=== PATIENT | female | born 1950 | race Caucasian/White ===

== ENCOUNTER 2016-08-23 13:54 | Emergency (ER) | payer OTHER ==
[~2016-08-23] VITALS: Ht 167.6 cm; Wt 77.1 kg
[~2016-08-23 13:54] MED LIST: ACET-868 PO; AMLO5TAB2 PO; ATOR40TA PO; BENA10TA2 PO; BENZ1TAB7 PO; CHOL100044 PO; DIPH25CA6 PO; DIVA125T2 PO; HYDR-3024 PO; HYDR-3326 PO; MELO-270 PO; METF500T7 PO; OXYM30SP84 NS; PANT40TA4 PO; TRAM50TA2 PO
[2016-08-23 14:37] LABS: BASOPHILS % (AUTO) 0.6 % (0.0-2.0); DIFF TOTAL % 100 %; EOSINOPHILS # (AUTO) 0.3 /CMM (0.0-0.7); EOSINOPHILS % (AUTO) 4.6 % (0.0-6.0); HEMATOCRIT 36 % (33-45); HEMOGLOBIN 12.1 g/dL (11.5-14.8); LYMPHOCYTES % (AUTO) 16.3 % (20.0-44.0); MEAN CORPUSCULAR HEMOGLOBIN 31 PG (26.0-33.0); MEAN CORPUSCULAR HGB CONC 34 g/dl (31.0-36.0); MEAN CORPUSCULAR VOLUME 92 fL (82-100); MONOCYTES # (AUTO) 0.7 /CMM (0.1-1.30); MONOCYTES % (AUTO) 11.2 % (2.0-12.0); NEUTROPHILS # (AUTO) 4.4 /CMM (1.8-8.9); NEUTROPHILS % (AUTO) 67.3 % (43.0-81.0); PLATELET COUNT (AUTO) 151 /CMM (150-450); RED BLOOD CELL COUNT(AUTO) 3.94 MIL/uL (4.0-5.2); WHITE BLOOD COUNT (AUTO) 6.4 K/uL (4.3-11.0)
[2016-08-23 14:41] LABS: ANION GAP 15 (5-14); CALCIUM, SERUM 8.6 mg/dL (8.5-10.1); CARBON DIOXIDE 24 mmol/L (21-32); CHLORIDE 98 mmol/L (98-107); GFR 56 mL/min (>60); GLUCOSE 85 mg/dL (74-106); POTASSIUM 4.4 mmol/L (3.5-5.1); SODIUM SERUM 133 mmol/L (136-145); UREA NITROGEN, BLOOD 10 mg/dL (7-18)
[2016-08-23 14:47] LABS: ALANINE AMINOTRANSFERASE 20 U/L (12-78); ALBUMIN 3.5 g/dL (3.4-5.0); ASPARTATE AMINOTRANSFERASE 19 U/L (15-37); BILIRUBIN,DIRECT 0.1 mg/dL (0.0-0.2); BILIRUBIN,TOTAL 0.4 mg/dL (0.2-1.0); INDIRECT BILIRUBIN 0.3 mg/dL (0.0-1.1); TOTAL PROTEIN, SERUM 6.2 g/dL (6.4-8.2)
[2016-08-23 14:51] LABS: ACETAMINOPHEN 0 ug/ml (10-30)
[2016-08-23 15:35] LABS: CANNABINOID, URINE NEGATIVE (NEGATIVE); PHENCYCLIDINE SCREEN,URINE NEGATIVE (NEGATIVE)
[2016-08-23 15:37] LABS: KETONES,URINE 15 (NEGATIVE); LEUKOCYTE ESTERASE ,URINE Large (NEGATIVE); PH,URINE 6.5 (5.0-8.0)
[2016-08-23 15:38] LABS: ADD UA MICROSCOPIC YES
[2016-08-23 15:41] LABS: ADD URINE CULTURE YES
[2016-08-23] MEDS ORDERED: OLAN10TA3 PO (16:00)
[2016-08-23] MEDS ORDERED: TEMA7.5C PO (16:00)
[2016-08-23] MEDS ORDERED: PARO20TA6 PO (16:00)
[2016-08-23] MEDS ORDERED: DIVA500T7 PO (16:00)
[2016-08-23] MEDS ORDERED: OLANZAPINE 5 MG TABLET PO ONE (16:30)
[2016-08-23] MEDS ORDERED: LORAZEPAM 1 MG TABLET PO ONE (16:30)
[2016-08-23] MEDS ORDERED: LORAZEPAM 1 MG TABLET ONE (16:33)
[2016-08-23] MEDS ORDERED: OLANZAPINE 5 MG TABLET ONE (16:33)
[2016-08-23 17:03] VITALS: BP 112/74
== END 2016-08-23 17:09 | disposition home or self-care (01) ==
LOC: ER 13:58
DX: F29 Unspecified psychosis not due to a substance or known physiological condition (principal); N39.0 Urinary tract infection, site not specified; E11.9 Type 2 diabetes mellitus without complications; I10 Essential (primary) hypertension; R51 Headache
CPT/HCPCS: 36415; 80048; 80076; 80305; 80329; 81001; 85025; 87086; 99284; A4606; G0480 ×2; 81000-TC; G6039-TC; Z7610

== ENCOUNTER 2016-09-21 12:47 | Inpatient (IN) | payer OTHER ==
[~2016-09-21] VITALS: Ht 157.5 cm; Wt 59.0 kg
[~2016-09-21 12:47] MED LIST changes: -ACET-868 PO; -DIPH25CA6 PO; +DIVA500T7 PO; -HYDR-3024 PO; -HYDR-3326 PO; +OLAN10TA3 PO; -OXYM30SP84 NS; +PARO20TA6 PO; +TEMA7.5C PO
[2016-09-21] MEDS ORDERED: OLANZAPINE 10 MG VIAL IM ONE ×2 (13:00→13:30)
[2016-09-21] MEDS ORDERED: WATER FOR INJECTION,STERILE 10 ML ONE (13:00)
--- NOTE | 2016-09-21 13:08 | NUR ---
PT BRITTANY PA FOR PSYCH EVAL FROM [facility]. PT IS AGITATED, AGGRESSIVE, AND HITTING LEGS ON BED. PT ABLE TO BE CALMED WHILE STAFF IS PRESENT BUT STARTS MOVING AND YELLING SOON SHE IS LEFT ALONE. PLACED ON 1 POINT RESTRAINT FOR SAFETY AT THIS TIME. MD AT BEDSIDE. IN ER BED 10.
[2016-09-21 13:21] LABS: BASOPHILS % (AUTO) 0.6 % (0.0-2.0); EOSINOPHILS # (AUTO) 0.3 /CMM (0.0-0.7); EOSINOPHILS % (AUTO) 4.3 % (0.0-6.0); HEMATOCRIT 36 % (33-45); HEMOGLOBIN 12.5 g/dL (11.5-14.8); LYMPHOCYTES # (AUTO) 1.5 /CMM (0.8-4.8); LYMPHOCYTES % (AUTO) 21.8 % (20.0-44.0); MEAN CORPUSCULAR HEMOGLOBIN 32 PG (26.0-33.0); MEAN CORPUSCULAR HGB CONC 35 g/dl (31.0-36.0); MEAN CORPUSCULAR VOLUME 93 fL (82-100); MONOCYTES # (AUTO) 0.7 /CMM (0.1-1.30); MONOCYTES % (AUTO) 9.7 % (2.0-12.0); NEUTROPHILS # (AUTO) 4.4 /CMM (1.8-8.9); NEUTROPHILS % (AUTO) 63.6 % (43.0-81.0); PLATELET COUNT (AUTO) 265 /CMM (150-450); RDW COEFFICIENT OF VARIATION 13.4 (11.5-15.0); RED BLOOD CELL COUNT(AUTO) 3.85 MIL/uL (4.0-5.2); WHITE BLOOD COUNT (AUTO) 6.9 K/uL (4.3-11.0)
[2016-09-21 13:28] LABS: APPEARANCE,URINE Clear (CLEAR); BILIRUBIN,URINE Negative (NEGATIVE); BLOOD, URINE Negative Ery/uL (NEGATIVE); COLOR,URINE Yellow (YELLOW); KETONES,URINE Negative (NEGATIVE); LEUKOCYTE ESTERASE ,URINE Negative (NEGATIVE); NITRITE, URINE Negative (NEGATIVE); PROTEIN,URINE Negative (NEGATIVE); UGLUCOSE Negative (NEGATIVE)
--- NOTE | 2016-09-21 13:30 | NUR ---
URINE SAMPLE OBTAINED VIA IN AND OUT CATH
[2016-09-21 13:35] LABS: ADD URINE CULTURE NO; BACTERIA,URINE Few /HPF (None Seen); RBC,URINE 0-2 /HPF (0-2); SQUAMOUS EPITHELIAL CELL,UR Few /HPF (None Seen)
[2016-09-21] MEDS ORDERED: LORAZEPAM INJ 2 MG/ML VIAL ONE (13:41)
--- NOTE | 2016-09-21 13:44 | NUR ---
CALLED [facility] FOR PSYCH EVAL, ETA 1 HOUR
--- NOTE | 2016-09-21 13:45 | NUR ---
PT REMAINS AGITATED, KICKING LEGS ON THE BED AND YELLING. 2MG ATIVAN ADMINISTERED IM PER MD ORDER.
[2016-09-21 13:58] LABS: CALCIUM, SERUM 8.7 mg/dL (8.5-10.1); CARBON DIOXIDE 19 mmol/L (21-32); CHLORIDE 107 mmol/L (98-107); GFR 56 mL/min (>60); GLUCOSE 91 mg/dL (74-106); POTASSIUM 4.1 mmol/L (3.5-5.1); SODIUM SERUM 142 mmol/L (136-145); UREA NITROGEN, BLOOD 14 mg/dL (7-18)
[2016-09-21] MEDS ORDERED: LORAZEPAM INJ 2 MG/ML VIAL IM ONE (14:00)
[2016-09-21 14:02] LABS: CANNABINOID, URINE NEGATIVE (NEGATIVE); PHENCYCLIDINE SCREEN,URINE NEGATIVE (NEGATIVE)
[2016-09-21 14:03] LABS: ALANINE AMINOTRANSFERASE 31 U/L (12-78); ALBUMIN 3.5 g/dL (3.4-5.0); ALCOHOL, BLOOD < 3 mg/dL (0-0); ALKALINE PHOSPHATASE 135 U/L (46-116); ASPARTATE AMINOTRANSFERASE 29 U/L (15-37); BILIRUBIN,DIRECT 0.2 mg/dL (0.0-0.2); BILIRUBIN,TOTAL 0.7 mg/dL (0.2-1.0); TOTAL PROTEIN, SERUM 6.4 g/dL (6.4-8.2)
[2016-09-21 14:04] LABS: ACETAMINOPHEN 0 ug/ml (10-30); SALICYLATE 1.4 mg/dL (2.8-20.0)
--- NOTE | 2016-09-21 14:35 | NUR ---
ELEUTERIO AT BEDSIDE
--- NOTE | 2016-09-21 15:07 | NUR ---
REPORT GIVEN TO JAVIER RN FOR ADMISSION
--- NOTE | 2016-09-21 15:51 | NUR ---
PT TRANSPORTED TO [facility] IN STABLE CONDITION
[2016-09-21] MEDS ORDERED: ASCO500T9 PO (15:55)
[2016-09-21] MEDS ORDERED: QUET100T PO (15:55)
[2016-09-21] MEDS ORDERED: SODI100010 PO (15:55)
[2016-09-21] MEDS ORDERED: RIVA1.5C7 PO (15:55)
[2016-09-21] MEDS ORDERED: CLON0.5T4 PO (15:55)
--- NOTE | 2016-09-21 15:55 | NUR ---
gps/rn Patient admitted on a 5150 hold for GD under the care of Dr Becerril and Dr Joshua. per hold patient was aggressive towards residents at facility, disorganized, confused, bizarre thoughts, and unable to care for self. Upon face to face assessment, patient was highly disorganized, confused, unable to answer basic questions, striking out at staff and refused skin assessment. Both Dr's aware of new admission, medications reconciled in system, admitting orders in system, MRSA done in Er. Patient denies Si/HI at this time, patient is in dining room, continues to be agitated, anxious, unable to redirect, no major distress noted, will continue to monitor q 15 min for safety and behavior.
[2016-09-21] MEDS ORDERED: MAG HYDROX/AL HYDROX/SIMETH 30 ML UDC PO PRN (16:00)
[2016-09-21] MEDS ORDERED: ACETAMINOPHEN 325 MG TABLET PO PRN (16:00)
[2016-09-21] MEDS ORDERED: MAGNESIUM HYDROXIDE 30 ML UDC PO PRN (16:00)
--- NOTE | 2016-09-21 16:30 | NUR ---
RN-CO: OBTAINED ADMITTING ORDERS FROM DR REHMAN VIA PHONE CALL. GAVE ROUTINE ORDERS NOTED AND CARRIED OUT.
[2016-09-21] MEDS: LORAZEPAM 0.5 MG TABLET PO PRN (17:29)
--- NOTE | 2016-09-21 17:30 | NUR ---
RN-CO: OBTAINED AN ORDER IF WE CAN PLACE PATIENT ON `1:1 SITTER DUE TO HER NON REDIRECTABLE BEHAVIOR LIKE CLIMBING OUT, SCRATCHING THE STAFF AND COMBATIVE TO CARE. DR REHMAN OK'D TO 1:1 THE PATIENT. PTS CURRENT BP IS 90/63.
--- NOTE | 2016-09-21 18:31 | NUR ---
GPS RN NOTE Called Dr. Anderson made aware about admission, orders reconciled and faxed to pharmacy.
[2016-09-21 20:12] VITALS: BP 102/82
[2016-09-21] MEDS: TEMAZEPAM 7.5 MG CAPSULE PO PRN (22:14)
[2016-09-22] MEDS: LORAZEPAM 0.5 MG TABLET PO PRN ×2 (05:29→20:37)
[2016-09-22 07:49] LABS: ALBUMIN 3.8 g/dL (3.4-5.0); BILIRUBIN,TOTAL 0.9 mg/dL (0.2-1.0); POTASSIUM 3.7 mmol/L (3.5-5.1); TOTAL PROTEIN, SERUM 6.8 g/dL (6.4-8.2)
[2016-09-22] MEDS: METFORMIN XR 500 MG TAB.SR.24H PO SCH (08:21)
[2016-09-22] MEDS: PANTOPRAZOLE 40 MG TABLET.DR PO SCH (08:22)
[2016-09-22] MEDS: SODIUM CHLORIDE 1000 MG TABLET.SOL PO SCH ×3 (08:22→18:53)
[2016-09-22] MEDS: RIVASTIGMINE TARTRATE 1.5 MG CAPSULE PO SCH ×2 (08:22→18:44)
[2016-09-22 09:21] VITALS: BP 112/58
--- NOTE | 2016-09-22 09:28 | NUR ---
Initial DC Plan: Patient was residing at [facility] ([address], [place] [address] ). Assigned SW to follow up with facility to confirm whether they are able to take her back. Di Gilberton from [facility] stated that they can help place her if necessary. SW spoke to the patient's brother (John Gutierrez- [phone]) who stated that he was coming down from [place] tomorrow (09/23/2016) and was going to be speaking to the facility. He stated that he will speak to them to see what options are available and will also meet with assigned SW. SW will follow up with facility in terms of placement. SW will help form a safe and proper discharge.
--- NOTE | 2016-09-22 11:14 | NUR ---
PATIENT VERY ANXIOUS, PARANOID, AGGRESSIVE, CONFUSED, STRIKING OUT AT OTHERS, DELUSIONAL,, HEARING VOICES, HARD TO FOLLOW DIRECTION, YELLING, SCREAMING. KEEP PATIENT QUIET, REDIRECTED. CALLED DR REHMAN, AND GET ORDER ZYPREXA 10MG/ML IM, AND ATIVAN 1 MG/ML IM, ORDER TAKEN , AND CARRIED OUT.
[2016-09-22] MEDS ORDERED: OLANZAPINE 10 MG VIAL IM ONE (11:30)
[2016-09-22] MEDS ORDERED: LORAZEPAM INJ 2 MG/ML VIAL IM ONE (11:30)
--- NOTE | 2016-09-22 11:35 | NUR ---
ADMINISTERED ATIVAN 1 MG/ML IM, AND ZYPREXA 10MG/ML IM, RIGHT UPPER DELTOID AREA PRESCRIBED BY DR TANG, V/S TAKEN BP-122/78, P-108, R-21, O2-94 ROOM AIR. 1:1 SITTER NEXT TO THE BED FOR SAFETY, CONTINUED MONITORING.
--- NOTE | 2016-09-22 12:05 | NUR ---
UR Update: Faxed clinicals to Di Harkins with [facility] (PHONE [phone] EXT [phone] FAX# [phone]). Also faxed clinicals to [facility] ([phone] EXT [phone] ). Sw will follow up. AUTHORIZATION# [id number]
--- NOTE | 2016-09-22 14:29 | NUR ---
BECKI spoke with pt's brother, John Gutierrez- [phone] who informed the group social worker that he will be in tomorrow to speak with the group social worker. John is coming out of state to discuss pt's living situation.
[2016-09-22 16:29] VITALS: BP 100/73
[2016-09-22] MEDS ORDERED: DIVALPROEX SODIUM 250 MG TABLET.DR PO SCH (17:00)
[2016-09-22] MEDS: clonazePAM 0.5 MG TABLET PO SCH (18:44)
[2016-09-22] MEDS: QUETIAPINE FUMARATE 100 MG TABLET PO SCH (18:44)
[2016-09-22 20:01] VITALS: BP 117/63
[2016-09-22] MEDS: DIVALPROEX SODIUM 125 MG CAP.SPRINK PO SCH (21:07)
[2016-09-22] MEDS: TEMAZEPAM 7.5 MG CAPSULE PO PRN (22:11)
[2016-09-23] MEDS: LORAZEPAM 0.5 MG TABLET PO PRN (03:41)
[2016-09-23] MEDS: PANTOPRAZOLE 40 MG TABLET.DR PO SCH (07:57)
[2016-09-23] MEDS: RIVASTIGMINE TARTRATE 1.5 MG CAPSULE PO SCH ×2 (07:57→16:42)
[2016-09-23 08:00] VITALS: BP 127/54
[2016-09-23] MEDS: DIVALPROEX SODIUM 125 MG CAP.SPRINK PO SCH ×2 (08:36→20:44)
[2016-09-23] MEDS: SODIUM CHLORIDE 1000 MG TABLET.SOL PO SCH ×3 (08:36→16:42)
[2016-09-23] MEDS: clonazePAM 0.5 MG TABLET PO SCH ×3 (08:36→16:42)
[2016-09-23] MEDS: METFORMIN XR 500 MG TAB.SR.24H PO SCH (08:37)
[2016-09-23] MEDS: QUETIAPINE FUMARATE 100 MG TABLET PO SCH ×3 (08:37→16:42)
--- NOTE | 2016-09-23 10:37 | NUR ---
UR Update: Faxed updated clinicals (H&P, med list) to Di Harkins with [facility] (PHONE [phone] EXT [phone] FAX# [phone]). will follow up. AUTHORIZATION# [id number]
--- NOTE | 2016-09-23 14:30 | NUR ---
BECKI spoke with [place] [facility] [place]ONE [phone] EXT [phone] FAX# [phone]) regarding pt's discharge and Di requested Medi - sabine application to be filled. BECKI left a voicemail for Bhavna Florez insurance liaison ext [phone] to file for one.
[2016-09-23 15:55] VITALS: BP 125/63
--- NOTE | 2016-09-23 17:02 | NUR ---
SW met with BECKI Swanson from [facility] [phone] and pt's brother, John Gutierrez- [phone] and pt's discharge plan and insurance was discussed. The meeting lasted about an hour and as an outcome, it was decided that pt. would dis-enrol from HMO and enrol back into straight medicare and apply for [facility] medi-sabine with share of cost. Pt's brother agreed and will take appropriate steps to achieve this.
[2016-09-23] MEDS ORDERED: Z GUARD REMEDY 2 OZ OINT TP PRN (17:30)
--- NOTE | 2016-09-23 19:45 | NUR ---
GPSRN PATIENT IN THE RECREATION ACTIVITY ROOM, SITTER AT BEDSIDE. VERBAL LIMITED, UNCOOPERATIVE OF THIS TIME, HITS STAFF WHEN ASKED. OTHERWISE QUIET WHEN LEFT ALONE. NEEDS CONSTANT OBSERVATION.
[2016-09-23 20:00] VITALS: BP 100/66
[2016-09-23 20:12] VITALS: BP 100/66
--- NOTE | 2016-09-23 22:25 | NUR ---
GPSRN DUE MEDS ADMINISTERED WITH APPLE SAUCE. ABLE TO SWALLOW.
--- NOTE | 2016-09-24 01:54 | NUR ---
GPSRN SLEEPING FOR NOW CLOSELY WATCHED.
[2016-09-24] MEDS: RIVASTIGMINE TARTRATE 1.5 MG CAPSULE PO SCH ×2 (06:46→17:11)
[2016-09-24 08:40] VITALS: BP 148/64
[2016-09-24] MEDS: DIVALPROEX SODIUM 125 MG CAP.SPRINK PO SCH ×2 (08:44→21:47)
[2016-09-24] MEDS: SODIUM CHLORIDE 1000 MG TABLET.SOL PO SCH ×3 (08:44→17:11)
[2016-09-24] MEDS: QUETIAPINE FUMARATE 100 MG TABLET PO SCH ×4 (08:45→21:47)
[2016-09-24] MEDS: clonazePAM 0.5 MG TABLET PO SCH ×3 (08:45→17:11)
[2016-09-24] MEDS: PANTOPRAZOLE 40 MG TABLET.DR PO SCH (08:45)
[2016-09-24] MEDS: METFORMIN XR 500 MG TAB.SR.24H PO SCH (08:45)
[2016-09-24 16:26] VITALS: BP 130/58
--- NOTE | 2016-09-24 16:45 | NUR ---
UR Update: Faxed updated clinicals to Di Harkins with [facility] (PHONE [phone] EXT [phone] FAX# [phone]). Sw will follow up. AUTHORIZATION# [id number]
--- NOTE | 2016-09-24 19:30 | NUR ---
PS RN NOTE, RECEIVED PATIENT AWAKE AND IN BED, NO S/S OR COMPLAINTS OF PAIN AT THIS TIME. PATIENT IS DISPLAYING NO S/S OF APPARENT DISTRESS AT THIS TIME. PATIENT BREATHING IS UNLABORED WITH EQUAL RISE AND FALL OF THE CHEST. PATIENT IS ALERT AND ORIENTED X 1 ON ROOM AIR WITH A SPO2 95%. PATIENT COMPLIANT WITH MEDICATIONS, ANXIOUS, HYPERVERBAL, DISORGANIZED, CONFUSED AT TIMES, AND NEEDS REORIENTATION. PATIENT DENIES SUICIDE AND HOMICIDAL IDEATIONS AT THIS TIME. PATIENT ASSISTED WITH TURNING AND REPOSITIONING Q2HR AND PRN FOR COMFORT AND CIRCULATION. PATIENT HAS NO NEEDS AT THIS TIME. PATIENT REFUSED SKIN ASSESSMENT TODAY. PATIENT EDUCATED ON THE USE OF THE CALL GUO. PATIENT BED SIDE RAILS UP X2 FOR SAFETY, BED IS LOCKED AND LOW WILL CONTINUE TO MONITOR AND MAINTAIN SAFETY.
[2016-09-24 20:14] VITALS: BP 126/78
[2016-09-25] MEDS: RIVASTIGMINE TARTRATE 1.5 MG CAPSULE PO SCH ×2 (07:08→17:16)
[2016-09-25 08:29] VITALS: BP 139/66
[2016-09-25] MEDS: PANTOPRAZOLE 40 MG TABLET.DR PO SCH (09:02)
[2016-09-25] MEDS: METFORMIN XR 500 MG TAB.SR.24H PO SCH (09:02)
[2016-09-25] MEDS: DIVALPROEX SODIUM 125 MG CAP.SPRINK PO SCH ×2 (09:02→21:37)
[2016-09-25] MEDS: SODIUM CHLORIDE 1000 MG TABLET.SOL PO SCH ×3 (09:02→17:17)
[2016-09-25] MEDS: clonazePAM 0.5 MG TABLET PO SCH ×3 (09:02→17:16)
[2016-09-25] MEDS: QUETIAPINE FUMARATE 100 MG TABLET PO SCH ×4 (09:06→21:37)
--- NOTE | 2016-09-25 12:30 | NUR ---
PT. ENDORSED TO ME BY TERESA MCGILL,IN RM. IN [facility]A CHAIR.
[2016-09-25 16:01] VITALS: BP 140/67
--- NOTE | 2016-09-25 19:30 | NUR ---
GPS RN NOTE, RECEIVED PATIENT AWAKE AND IN BED, NO S/S OR COMPLAINTS OF PAIN AT THIS TIME. PATIENT IS DISPLAYING NO S/S OF APPARENT DISTRESS AT THIS TIME. PATIENT BREATHING IS UNLABORED WITH EQUAL RISE AND FALL OF THE CHEST. PATIENT IS ALERT AND ORIENTED X 1 ON ROOM AIR WITH A SPO2 95%. PATIENT COMPLIANT WITH MEDICATIONS WHEN CRUSHED, ANXIOUS, HYPERVERBAL, DISORGANIZED, CONFUSED AT TIMES, AND NEEDS REORIENTATION. PATIENT DENIES SUICIDE AND HOMICIDAL IDEATIONS AT THIS TIME. PATIENT ASSISTED WITH TURNING AND REPOSITIONING Q2HR AND PRN FOR COMFORT AND CIRCULATION. PATIENT HAS NO NEEDS AT THIS TIME. PATIENT REFUSED SKIN ASSESSMENT TODAY. PATIENT EDUCATED ON THE USE OF THE CALL GUO. PATIENT BED SIDE RAILS UP X2 FOR SAFETY, BED IS LOCKED AND LOW WILL CONTINUE TO MONITOR AND MAINTAIN SAFETY.
[2016-09-25 19:56] VITALS: BP 132/63
[2016-09-25] MEDS: TEMAZEPAM 7.5 MG CAPSULE PO PRN (22:42)
--- NOTE | 2016-09-25 22:42 | NUR ---
GPS RN NOTE, PATIENT HAS A COMPLAINT OF NOT BEING ABLE TO SLEEP AND WOULD LIKE A SLEEPING AID AT THIS TIME. PATIENT VITAL SIGNS ARE STABLE. GAVE RESTORIL 7.5MG PO HS ORDERED. WILL REASSESS FOR INSOMNIA AND I WILL CONTINUE TO MONITOR THIS PATIENT.
[2016-09-26] MEDS: RIVASTIGMINE TARTRATE 1.5 MG CAPSULE PO SCH ×2 (07:48→18:12)
[2016-09-26] MEDS: METFORMIN XR 500 MG TAB.SR.24H PO SCH (07:48)
[2016-09-26] MEDS: SODIUM CHLORIDE 1000 MG TABLET.SOL PO SCH ×3 (07:48→18:12)
[2016-09-26] MEDS: clonazePAM 0.5 MG TABLET PO SCH ×3 (07:49→18:12)
[2016-09-26] MEDS: PANTOPRAZOLE 40 MG TABLET.DR PO SCH (07:49)
[2016-09-26] MEDS: DIVALPROEX SODIUM 125 MG CAP.SPRINK PO SCH ×2 (07:49→22:04)
[2016-09-26] MEDS: QUETIAPINE FUMARATE 100 MG TABLET PO SCH ×4 (07:57→22:04)
[2016-09-26 08:00] VITALS: BP 112/89
[2016-09-26 16:00] VITALS: BP 100/66
--- NOTE | 2016-09-26 19:40 | NUR ---
GPS OPENING NOTES RECEIVED Pt AWAKE, SITTING IN CHAIR IN THE ACTIVITY ROOM. NO S/S OF ACUTE DISTRESS OR SOB NOTED. Pt BREATHING IS UNLABORED WITH EQUAL RISE AND FALL OF THE CHEST. NO SIGNS OF PAIN NOTED AT THIS TIME. Pt IS A/OX1, CONFUSED, VERBAL. SAFETY MEASURES IN PLACE. BEING WATCHED BY DOOR LINER WHILE IN THE ACTIVITY ROOM. WILL CONTINUE TO MONITOR Pt THROUGHOUT THE NIGHT AND MAINTAIN SAFETY.
[2016-09-26 20:12] VITALS: BP 110/59
[2016-09-26] MEDS: TEMAZEPAM 7.5 MG CAPSULE PO PRN (22:05)
--- NOTE | 2016-09-27 06:40 | NUR ---
RN CLOSING NOTES NO SIGNIFICANT CHANGES. NO S/S OF ACUTE DISTRESS OR SOB NOTED DURING THE NIGHT. ALL SAFETY MEASURES CARRIED OUT. ALL NEEDS MET AND ATTENDED TO. WILL ENDORSE TO DAYSHIFT RN FOR Pt's JAIRON.
[2016-09-27] MEDS: RIVASTIGMINE TARTRATE 1.5 MG CAPSULE PO SCH ×2 (06:45→16:19)
[2016-09-27] MEDS: PANTOPRAZOLE 40 MG TABLET.DR PO SCH (06:45)
[2016-09-27 08:00] VITALS: BP 115/73
[2016-09-27] MEDS: METFORMIN XR 500 MG TAB.SR.24H PO SCH (08:01)
[2016-09-27] MEDS: SODIUM CHLORIDE 1000 MG TABLET.SOL PO SCH ×3 (08:01→16:19)
[2016-09-27] MEDS: clonazePAM 0.5 MG TABLET PO SCH ×3 (08:01→16:19)
[2016-09-27] MEDS: DIVALPROEX SODIUM 125 MG CAP.SPRINK PO SCH ×2 (08:01→21:53)
[2016-09-27] MEDS: QUETIAPINE FUMARATE 100 MG TABLET PO SCH ×4 (08:09→21:52)
--- NOTE | 2016-09-27 09:31 | NUR ---
UR Update: Faxed updated clinicals to Di Harkins with [facility] (P [phone] EXT [phone] F [phone]). SW will follow up. AUTHORIZATION# [id number]
--- NOTE | 2016-09-27 09:36 | NUR ---
BECKI spoke with pt's brother, John Gutierrez- [phone] who confirmed that he is trying to dis-enroll the patient from HMO and enroll pt. back into straight medicare which will help SW in order to place the patient in a SNF. John is also working on applying for snf medi-sabine with share of cost. BECKI will follow up .
[2016-09-27 16:00] VITALS: BP 132/70
[2016-09-27 20:30] VITALS: BP 100/72
[2016-09-27] MEDS: TEMAZEPAM 7.5 MG CAPSULE PO PRN (21:57)
[2016-09-28] MEDS: RIVASTIGMINE TARTRATE 1.5 MG CAPSULE PO SCH ×2 (06:25→17:51)
[2016-09-28 08:00] VITALS: BP 115/60
[2016-09-28] MEDS: METFORMIN XR 500 MG TAB.SR.24H PO SCH (08:06)
[2016-09-28] MEDS: DIVALPROEX SODIUM 125 MG CAP.SPRINK PO SCH ×2 (08:06→20:18)
[2016-09-28] MEDS: PANTOPRAZOLE 40 MG TABLET.DR PO SCH (08:06)
[2016-09-28] MEDS: SODIUM CHLORIDE 1000 MG TABLET.SOL PO SCH ×3 (08:07→17:52)
[2016-09-28] MEDS: clonazePAM 0.5 MG TABLET PO SCH ×3 (08:07→17:52)
[2016-09-28] MEDS: QUETIAPINE FUMARATE 100 MG TABLET PO SCH ×4 (08:10→20:18)
--- NOTE | 2016-09-28 11:06 | NUR ---
UR Update: Faxed updated clinicals to Di Harkins with [facility] (P [phone] EXT [phone] F [phone]). SW will follow up. AUTHORIZATION# [id number]
--- NOTE | 2016-09-28 11:07 | NUR ---
UR Update: BECKI spoke with Di Harkins with [facility] (P [phone] EXT [phone] F [phone]) and discussed updates regarding disenrollment. AUTHORIZATION# [id number]
[2016-09-28 16:00] VITALS: BP 100/63
[2016-09-28 20:33] VITALS: BP 132/78
[2016-09-29] MEDS: RIVASTIGMINE TARTRATE 1.5 MG CAPSULE PO SCH ×2 (06:35→16:32)
[2016-09-29] MEDS: DIVALPROEX SODIUM 125 MG CAP.SPRINK PO SCH ×2 (08:21→21:36)
[2016-09-29] MEDS: SODIUM CHLORIDE 1000 MG TABLET.SOL PO SCH ×3 (08:21→16:31)
[2016-09-29] MEDS: METFORMIN XR 500 MG TAB.SR.24H PO SCH (08:21)
[2016-09-29] MEDS: clonazePAM 0.5 MG TABLET PO SCH ×3 (08:21→16:31)
[2016-09-29] MEDS: PANTOPRAZOLE 40 MG TABLET.DR PO SCH (08:21)
[2016-09-29] MEDS: QUETIAPINE FUMARATE 100 MG TABLET PO SCH ×4 (08:24→21:36)
[2016-09-29 08:49] VITALS: BP 128/77
--- NOTE | 2016-09-29 12:03 | NUR ---
UR Update: BECKI faxed clinical information and spoke with Di Harkins with [facility] (P [phone] EXT [phone] F [phone]). AUTHORIZATION# [id number]
--- NOTE | 2016-09-29 12:04 | NUR ---
BECKI spoke with pt's niece Em [phone] who will be helping her dad to take care of financial decisions for the patient. She agreed to call and disenroll from medicare. Then called back and left a voicemail that she is unable to do it without her father. Becki relayed that information to Di from [facility] (P [phone] EXT [phone] F [phone])
[2016-09-29 16:00] VITALS: BP 117/71
[2016-09-29 20:54] VITALS: BP 108/78
[2016-09-30] MEDS: LORAZEPAM 0.5 MG TABLET PO PRN (04:29)
--- NOTE | 2016-09-30 04:29 | NUR ---
GPS RN NOTE, PATIENT HAS A COMPLAINT OF FEELING ANXIOUS AND WOULD LIKE MEDICATION AT THIS TIME. PATIENT VITAL SIGNS ARE STABLE. GAVE ATIVAN 0.5MG PO Q6HR PRN ORDERED. WILL REASSESS FOR ANXIETY AND I WILL CONTINUE TO MONITOR THIS PATIENT.
[2016-09-30] MEDS: PANTOPRAZOLE 40 MG TABLET.DR PO SCH (08:00)
[2016-09-30] MEDS: METFORMIN XR 500 MG TAB.SR.24H PO SCH (08:01)
[2016-09-30] MEDS: clonazePAM 0.5 MG TABLET PO SCH ×3 (08:01→17:04)
[2016-09-30] MEDS: DIVALPROEX SODIUM 125 MG CAP.SPRINK PO SCH ×2 (08:01→20:32)
[2016-09-30] MEDS: RIVASTIGMINE TARTRATE 1.5 MG CAPSULE PO SCH ×2 (08:02→17:06)
[2016-09-30] MEDS: SODIUM CHLORIDE 1000 MG TABLET.SOL PO SCH ×3 (08:02→17:04)
[2016-09-30] MEDS: QUETIAPINE FUMARATE 100 MG TABLET PO SCH ×4 (08:06→20:32)
[2016-09-30 08:11] VITALS: BP 124/78
--- NOTE | 2016-09-30 09:00 | NUR ---
GPS RN NOTE, RECEIVED PATIENT AWAKE AND IN BED, NO S/S OR COMPLAINTS OF PAIN AT THIS TIME. PATIENT IS DISPLAYING NO S/S OF APPARENT DISTRESS AT THIS TIME. PATIENT BREATHING IS UNLABORED WITH EQUAL RISE AND FALL OF THE CHEST. PATIENT IS ALERT AND ORIENTED X 1 ON ROOM AIR WITH A SPO2 95%. PATIENT COMPLIANT WITH MEDICATIONS WHEN CRUSHED, ANXIOUS, HYPERVERBAL, DISORGANIZED, CONFUSED AT TIMES, AND NEEDS REORIENTATION. PATIENT DENIES SUICIDE AND HOMICIDAL IDEATIONS AT THIS TIME. PATIENT ASSISTED WITH TURNING AND REPOSITIONING Q2HR AND PRN FOR COMFORT AND CIRCULATION. PATIENT HAS NO NEEDS AT THIS TIME. PATIENT EDUCATED ON THE USE OF THE CALL GUO. PATIENT BED SIDE RAILS UP X2 FOR SAFETY, BED IS LOCKED AND LOW WILL CONTINUE TO MONITOR AND MAINTAIN SAFETY.
--- NOTE | 2016-09-30 12:08 | NUR ---
UR Update: BECKI faxed clinical information to Di Harkins with [facility] (P [phone] EXT [phone] F [phone]). AUTHORIZATION# [id number]
--- NOTE | 2016-09-30 12:09 | NUR ---
Pt's chrsi Strickland [phone] left a voicemail for SW stating pt. is disenrolled from O and will have her medicare from 10/02/16.
--- NOTE | 2016-09-30 16:10 | NUR ---
Pt. was referred and not accepted to [facility] [address] [place] [address] per Hanna from admission.
--- NOTE | 2016-09-30 16:13 | NUR ---
BECKI faxed a referral to [facility] [address] [place] [address] . Will follow up Addendum: 10/04/16 at 1455 by MACIEL CONNELL Dominik from the facility came to assess the patient, and after reviewing with their DON pt. cannot be accepted.
[2016-09-30 16:14] VITALS: BP 115/73
--- NOTE | 2016-09-30 18:26 | NUR ---
GPS RN NOTES PATIENT IN BED RESTING NO SOB OR ACUTE DISTRESS NOTED. ALL DUE MEDICATIONS GIVEN. ALL NEEDS MET. PATIENT COOPERATIVE. WILL ENDORSE TO PM SHIFT JAIRON.
[2016-09-30 20:00] VITALS: BP 126/80
[2016-10-01 08:00] VITALS: BP 159/51
[2016-10-01] MEDS: SODIUM CHLORIDE 1000 MG TABLET.SOL PO SCH ×3 (08:31→17:03)
[2016-10-01] MEDS: clonazePAM 0.5 MG TABLET PO SCH ×3 (08:31→17:03)
[2016-10-01] MEDS: QUETIAPINE FUMARATE 100 MG TABLET PO SCH ×4 (08:32→22:11)
[2016-10-01] MEDS: PANTOPRAZOLE 40 MG TABLET.DR PO SCH (08:32)
[2016-10-01] MEDS: RIVASTIGMINE TARTRATE 1.5 MG CAPSULE PO SCH ×2 (08:32→17:03)
[2016-10-01] MEDS: DIVALPROEX SODIUM 125 MG CAP.SPRINK PO SCH ×2 (08:32→22:11)
[2016-10-01] MEDS: METFORMIN XR 500 MG TAB.SR.24H PO SCH (08:32)
[2016-10-01 16:08] VITALS: BP 102/72
--- NOTE | 2016-10-01 19:45 | NUR ---
RN OPENING NOTES RECEIVED REPORT FROM DAYSHIFT RN. FOUND Pt AWAKE, SITTING IN CHAIR IN THE ACTIVITY ROOM WATCHING TV, WITH REGISTERED PHARMACY TECHNICIAN PRESENT IN ROOM. Pt IS A/OX1, CONFUSED. NO S/S OF ACUTE DISTRESS OR SOB NOTED. EQUAL CHEST RISE AND FALL. SAFETY MEASURES IN PLACE. WILL CONTINUE TO MONITOR Pt THROUGHOUT THE NIGHT FOR SAFETY.
[2016-10-01 20:00] VITALS: BP 137/72
--- NOTE | 2016-10-02 06:47 | NUR ---
RN CLOSING NOTES NO SIGNIFICANT CHANGES DURING THE NIGHT. NO S/S OF ACUTE DISTRESS OR SOB NOTED DURING THE SHIFT. ALL NEEDS MET AND ATTENDED TO. SAFETY MEASURES CARRIED OUT. WILL ENDORSE TO DAYSHIFT RN FOR Pt's JAIRON AND SAFETY. Addendum: 10/02/16 at 0648 by SHRUTHI RIVERA RN POSSIBLE D/C BACK TO FACILITY TODAY
[2016-10-02] MEDS: RIVASTIGMINE TARTRATE 1.5 MG CAPSULE PO SCH ×2 (06:54→17:12)
[2016-10-02] MEDS: PANTOPRAZOLE 40 MG TABLET.DR PO SCH (06:54)
[2016-10-02 08:01] VITALS: BP 129/70
[2016-10-02] MEDS: DIVALPROEX SODIUM 125 MG CAP.SPRINK PO SCH ×2 (08:47→20:52)
[2016-10-02] MEDS: clonazePAM 0.5 MG TABLET PO SCH ×3 (08:47→17:12)
[2016-10-02] MEDS: SODIUM CHLORIDE 1000 MG TABLET.SOL PO SCH ×3 (08:47→17:12)
[2016-10-02] MEDS: METFORMIN XR 500 MG TAB.SR.24H PO SCH (08:47)
[2016-10-02] MEDS: QUETIAPINE FUMARATE 100 MG TABLET PO SCH ×4 (08:50→20:52)
[2016-10-02] MEDS: BOOST PLUS FOOD-VANILLA 237 ML BOX PO SCH ×3 (09:36→17:13)
[2016-10-02 16:08] VITALS: BP 118/59
[2016-10-02 20:00] VITALS: BP 127/74
--- NOTE | 2016-10-02 20:00 | NUR ---
RECEIVED PATIENT UP ON CHAIR, NON-VERBAL, CALM, DISORIENTED, NO SOB, NO DISTRESS, NOT IN APPARENT PAIN, NO FACIAL GRIMACING. KEPT SAFE AND COMFORTABLE, WILL CONTINUE TO MONITOR.
--- NOTE | 2016-10-02 20:58 | NUR ---
PATIENT COMPLIANT WITH MEDICATION, GIVEN CRUSHED AND MIXED WITH APPLE SAUCE. REQUIRES PROMPTING TO SWALLOW. WILL CONTINUE TO MONITOR.
[2016-10-03] MEDS: LORAZEPAM 0.5 MG TABLET PO PRN (03:54)
--- NOTE | 2016-10-03 04:06 | NUR ---
AWAKE AND ALERT, GETTING OUT OF BED UNASSISTED, RESTLESS, ANXIOUS, GIVEN ATIVAN 0.5 MG PO PRN. PATIENT TRANSFERRED TO TAYA CHAIR FOR SAFETY
[2016-10-03] MEDS: RIVASTIGMINE TARTRATE 1.5 MG CAPSULE PO SCH ×2 (06:28→16:39)
[2016-10-03] MEDS: PANTOPRAZOLE 40 MG TABLET.DR PO SCH (06:28)
--- NOTE | 2016-10-03 06:40 | NUR ---
PATIENT UP ON CHAIR IN ACTIVITY ROOM, WITH EPISODES OF CONFUSION, COMBATIVENESS, GETTING OUT OF BED UNASSISTED. NO ADVERSE CHANGE OF CONDITION DURING SHIFT. COMPLIANT WITH MEDICATION, SHOULD BE CRUSHED AND MIXED WITH APPLE SAUCE.
[2016-10-03] MEDS: clonazePAM 0.5 MG TABLET PO SCH ×3 (08:13→16:39)
[2016-10-03] MEDS: SODIUM CHLORIDE 1000 MG TABLET.SOL PO SCH ×3 (08:14→16:39)
[2016-10-03] MEDS: METFORMIN XR 500 MG TAB.SR.24H PO SCH (08:14)
[2016-10-03] MEDS: DIVALPROEX SODIUM 125 MG CAP.SPRINK PO SCH ×2 (08:14→21:32)
[2016-10-03] MEDS: BOOST PLUS FOOD-VANILLA 237 ML BOX PO SCH ×3 (08:14→16:45)
[2016-10-03] MEDS: QUETIAPINE FUMARATE 100 MG TABLET PO SCH ×4 (08:20→21:32)
[2016-10-03 08:43] VITALS: BP 155/90
[2016-10-03 16:30] VITALS: BP 144/69
[2016-10-03 20:03] VITALS: BP 125/67
[2016-10-04] MEDS: RIVASTIGMINE TARTRATE 1.5 MG CAPSULE PO SCH ×2 (06:30→17:24)
[2016-10-04] MEDS: PANTOPRAZOLE 40 MG TABLET.DR PO SCH ×2 (06:31→08:32)
[2016-10-04 08:00] VITALS: BP 112/74
[2016-10-04] MEDS: BOOST PLUS FOOD-VANILLA 237 ML BOX PO SCH ×3 (08:00→17:24)
[2016-10-04] MEDS: clonazePAM 0.5 MG TABLET PO SCH ×3 (08:31→17:24)
[2016-10-04] MEDS: DIVALPROEX SODIUM 125 MG CAP.SPRINK PO SCH ×2 (08:32→21:29)
[2016-10-04] MEDS: METFORMIN XR 500 MG TAB.SR.24H PO SCH (08:32)
[2016-10-04] MEDS: SODIUM CHLORIDE 1000 MG TABLET.SOL PO SCH ×3 (08:32→17:25)
[2016-10-04] MEDS: QUETIAPINE FUMARATE 100 MG TABLET PO SCH ×4 (08:45→21:29)
--- NOTE | 2016-10-04 14:55 | NUR ---
Pt. was referred and accepted to [facility] [address] [place] [address] and can be transferred there tomorrow. SW arranged transportation with [facility] and will be picked up tomorrow at 11:00AM.
--- NOTE | 2016-10-04 15:28 | NUR ---
UR Update: BECKI faxed clinical information to Di Harkins with [facility] (P [phone] EXT [phone] F [phone]). AUTHORIZATION# [id number]. BECKI also spoke with Di regarding pt's discharge tomorrow and Di agrees.
[2016-10-04 16:00] VITALS: BP 124/69
[2016-10-04 20:17] VITALS: BP_SYST 112; BP_SYST 126; BP_DIAS 65; BP_DIAS 74
[2016-10-05] MEDS: RIVASTIGMINE TARTRATE 1.5 MG CAPSULE PO SCH (07:08)
[2016-10-05 08:00] VITALS: BP 145/99
[2016-10-05] MEDS: METFORMIN XR 500 MG TAB.SR.24H PO SCH (08:10)
[2016-10-05] MEDS: clonazePAM 0.5 MG TABLET PO SCH (08:10)
[2016-10-05] MEDS: SODIUM CHLORIDE 1000 MG TABLET.SOL PO SCH (08:10)
[2016-10-05] MEDS: DIVALPROEX SODIUM 125 MG CAP.SPRINK PO SCH (08:10)
[2016-10-05] MEDS: PANTOPRAZOLE 40 MG TABLET.DR PO SCH (08:11)
[2016-10-05] MEDS: BOOST PLUS FOOD-VANILLA 237 ML BOX PO SCH (08:16)
[2016-10-05] MEDS: QUETIAPINE FUMARATE 100 MG TABLET PO SCH (08:30)
--- NOTE | 2016-10-05 09:05 | NUR ---
RN-CO: DR JORGE , COVERING FOR DR REHMAN TODAY GAVE AN ORDER TO DISCONTINUE HOLD AND DISCHARGE PATIENT TODAY. PATIENT REMAIN CALM AND COOPERATIVE TO CARE. DENIED SUICIDAL AND HOMICIDAL IDEATION. DENIED AUDITORY AND VISUAL HALLUCINATION.
--- NOTE | 2016-10-05 11:15 | NUR ---
[id number]: PT IS 66 YEARS OLD FEMALE DISCHARGE TO [facility] [address] [place] [address] IN STABLE CONDITION. COMPLIANT WITH MEDIATIONS, COOPERATIVE WITH TREATMENT PLANS. PT DENIES SI/HI. BEHAVIOR IMPROVED, PSYCHIATRIST TX PLANS MET, MEDICAL TX PLANS DEFERRED FOR CONTINUAL MONITORING. EDUCATED PT ABOUT AFTER CARE PLAN AND COPY PROVIDED. RETURNED PERSONAL BELONGINGS TO PT. MEDICATIONS RECONCILED WITH DR. JORGE AND DR. GRANDA. REPORT GIVEN TO RODNEY MARKS AT [facility] FOR CONTINUITY OF CARE. PT REFUSED TO SIGN DISCHARGE PAPERWORK. PT REFUSED SKIN ASSESSMENT. PT LEFT THE UNIT ACCOMPANIED BY [facility].
--- NOTE | 2016-10-05 15:26 | NUR ---
Discharge note: discharged to [facility] [address] [place] [address] via [facility] at 11:00AM. Em Clifton [phone] and BrotherJohn- [phone] were notified. Pt. was calm and cooperative upon discharge and agreed with discharge plan. Pt. denies suicidal/homicidal ideations. Discharge instructions were provided to the accepting facility and paperwork has been signed.
--- NOTE | 2016-10-05 15:27 | NUR ---
UR Update: BECKI faxed discharge paperwork to Di Harkins with [facility] (P [phone] EXT [phone] F [phone]). AUTHORIZATION# [id number].
== END 2016-10-05 11:15 | DRG 885 ==
LOC: ER 12:48 → GPS 14:59
PROVIDERS: ADMIT Internal Medicine; ATTEND Psychiatry & Neurology Psychiatry
DX: F29 Unspecified psychosis not due to a substance or known physiological condition (principal); F02.81 Dementia in other diseases classified elsewhere, unspecified severity, with behavioral disturbance; F01.51 Vascular dementia, unspecified severity, with behavioral disturbance; F31.9 Bipolar disorder, unspecified; E78.5 Hyperlipidemia, unspecified; I10 Essential (primary) hypertension; E11.9 Type 2 diabetes mellitus without complications; M19.90 Unspecified osteoarthritis, unspecified site; G40.909 Epilepsy, unspecified, not intractable, without status epilepticus; G30.9 Alzheimer's disease, unspecified; Z86.73 Personal history of transient ischemic attack (TIA), and cerebral infarction without residual deficits; Z79.899 Other long term (current) drug therapy
CPT/HCPCS: 36415; 80048-TC; 80053-TC; 80076-TC; 80164-TC; 80305; 81000-TC; 85025-TC; 97001-TC; 97110-TC; 97116-TC; 97530-TC; A4606; G0480; G6039-TC; J2060; J3490; Z7610